=== PATIENT | female | born 1965 | race Caucasian/White ===

== ENCOUNTER 2019-01-01 21:43 | Inpatient (IN) | payer OTHER ==
[~2019-01-01] VITALS: Ht 160 cm; Wt 59.0 kg
[2019-01-01 21:52] VITALS: BP 150/44
[2019-01-01 23:14] LABS: CALCIUM 8.4 mg/dL (8.5-10.1); CREATININE 0.8 mg/dL (0.6-1.3); POTASSIUM 4.3 mmol/L (3.5-5.1)
[2019-01-01 23:18] LABS: TOTAL BILIRUBIN 0.5 mg/dL (<0.1-1.0); TOTAL PROTEIN 6.3 g/dL (6.4-8.2); URIC ACID* 2.7 mg/dL (2.6-7.2)
[2019-01-01 23:18] LABS: ABSOLUTE EOSINOPHILS 0.1 thou/uL (0.0-0.7); ABSOLUTE LYMPHOCYTES 1.1 thou/uL (0.8-5.3); ABSOLUTE MONOCYTES 0.6 thou/uL (0.0-1.2); ABSOLUTE NEUTROPHILS 4.3 thou/uL (1.6-8.1); BASOPHILS 0.4 %; EOSINOPHILS 2.1 %; HEMATOCRIT 37.4 % (37.0-47.0); LYMPHOCYTES 18.5 %; MCH 31.5 pg (26.0-34.0); MCHC 34.7 g/dL (28.0-37.0); MCV 90.8 fL (80.0-100.0); MPV 7.3 fl. (7.2-11.1); NUCLEATED RBCS 0 /100WBC; PLATELET COUNT* 248 thou/uL (150-400); RBC 4.12 mil/uL (4.20-5.00); WBC 6.1 thou/uL (4.0-11.0)
[2019-01-02] VITALS: BP 146/61
[2019-01-02 00:22] LABS: URINE BILIRUBIN NEGATIVE (Negative); URINE BLOOD NEGATIVE (Negative); URINE CLARITY CLEAR; URINE COLOR YELLOW; URINE GLUCOSE-RANDOM NEGATIVE (Negative); URINE KETONES NEGATIVE (Negative); URINE LEUKOCYTES-REFLEX NEGATIVE (Negative); URINE NITRITE-REFLEX NEGATIVE (Negative); URINE PROTEIN NEGATIVE (Negative); URINE UROBILINOGEN 0.2 E.U./dl (0.2-1.0)
[2019-01-02 00:27] LABS: AMP/METHAMP POSITIVE (Negative); BARBITURATES Negative (Negative); BENZODIAZEPINES POSITIVE (Negative); COCAINE Negative (Negative); METHADONE Negative (Negative); OPIATES Negative (Negative); PCP Negative (Negative); THC POSITIVE (Negative)
[2019-01-02 00:28] LABS: ESR (SEDRATE) 35 mm/hr (0-30)
[2019-01-02 00:29] VITALS: BP 141/75
[2019-01-02 08:15] VITALS: BP 125/73
[2019-01-02 13:35] LABS: BE -1.2 mmol/L (-2 to +3); PCO2 44.4 mmHg (35.0-45.0); PO2 85.3 mmHg (75.0-100.0); pH 7.359 (7.340-7.450)
[2019-01-02 16:27] VITALS: BP 144/69
[2019-01-03 00:06] VITALS: BP 158/79
[2019-01-03 07:05] LABS: HEMATOCRIT 41.3 % (37.0-47.0); HEMOGLOBIN 14.4 gm/dL (12.0-15.0); MCH 31.4 pg (26.0-34.0); MCHC 34.9 g/dL (28.0-37.0); MCV 89.9 fL (80.0-100.0); RBC 4.6 mil/uL (4.20-5.00); RDW-CV 12.7 % (10.5-14.5); WBC 5.4 thou/uL (4.0-11.0)
[2019-01-03 07:15] LABS: CALCIUM 8.2 mg/dL (8.5-10.1); CREATININE 0.7 mg/dL (0.6-1.3); POTASSIUM 4.3 mmol/L (3.5-5.1)
[2019-01-03 07:50] VITALS: BP 151/75
--- NOTE | 2019-01-03 11:52 | CON ---
[address] [address] CONSULTATION Name: NOLEMISA M Room: [address] M.R.#: [id number] Admission: 01/01/19 Attend Phys: Nesha Dasilva Discharge: Date of : 67 Report #: [id number] THIS REPORT FOR: //name// CC: [facility] physician/PCP Lilian Ramirez DATE OF SERVICE: 01/02/2019 INFECTIOUS DISEASE CONSULTATION ATTENDING PHYSICIAN: Dr. Ramirez. REASON FOR EVALUATION: Left lower extremity inflammatory eruption, likely skin and soft tissue infection with cellulitis. HISTORY OF PRESENT ILLNESS: Chart reviewed, patient examined. This is a 53-year-old woman without significant medical history other than history of illicit drug use. Does have apparently hepatitis B and hepatitis C that has been nontreated at this point, who smiles as she may have injured her foot in some way. She was out running with no shoes on. She is not certain. Initially had some discomfort, seemed to have resolved to some extent and then worsened over the course of the last 2-3 days prior to admission. She has had no significant fevers. She has had some anorexia with decreased food intake. Denies significant pulmonary or gastrointestinal related complaints. On evaluation, he was found to have erythrodermic type painful eruption involving her left lower extremity involving the extent of the foot, primarily dorsal aspect to the ankle and distal leg. There are no bullous lesions, no ulcerations. Edema is somewhat taut. Evaluation including plain film of the foot confirms the soft tissue swelling without evidence of underlying osseous abnormality. CRP was mildly elevated 28.7. Lactic acid 1.2. Sed rate of 35. Blood cultures are sterile thus far. She was empirically started on antimicrobial therapy with vancomycin and ceftriaxone. ALLERGIES: None known. MEDICATIONS: Include ceftriaxone, oxycodone, vancomycin, fentanyl, ondansetron as needed. PAST MEDICAL HISTORY: Otherwise unremarkable. SOCIAL HISTORY: Distant illicit drug use. Did confirm hepatitis C and hepatitis B. It had not been treated. It is chronic in nature. FAMILY HISTORY: Noncontributory. REVIEW OF SYSTEMS: Otherwise, unremarkable. A 10-[id number] CONSULTATION Name: MISA COHEN Nesha Room: [address] [place] [facility]#: [id number] Admission: 01/01/19 Attend Phys: Nesha Dasilva Discharge: Date of : 67 Report #: [id number] the exception of what is noted above. Denies any pulmonary or gastrointestinal related complaints. PHYSICAL EXAMINATION: GENERAL: She is in nwji-dw-ninndqar distress secondary to the left foot pain. She is lucid, appears to be generally well nourished. VITAL SIGNS: Temperature 97.8, pulse 80, respirations 16, blood pressure is 125/73. SKIN: Warm, dry. HEENT: Normocephalic. Extraocular muscles intact. NECK: Supple. LUNGS: Generally clear to auscultation. HEART: Regular. I do not appreciate a murmur. ABDOMEN: Soft, nontender. EXTREMITIES: Left lower extremity has erythrodermic type eruption that involves the entirety of the foot, especially dorsal aspect is tender to palpation, is difficult to appreciate a pulse although it may be due to the significant edema associated with it. It is warm to touch. It is quite tender. GENITOURINARY: Deferred. RECTAL: Deferred. LABORATORY DATA: Blood cultures sterile thus far. Urinalysis unremarkable. CBC: White count of 6.1, H and H 13.0 and 37.4, platelets of 248. Drug screen positive for methamphetamines, benzodiazepines, marijuana. Electrolytes: Sodium 141, potassium 4.3, chloride 103, bicarbonate is 27, anion gap of 11, BUN and creatinine 14 and 0.8, glucose 94, AST of 65, ALT of 78, alkaline phosphatase of 107, albumin 3, total protein 6.3, estimated GFR of 75. ASSESSMENT: Distal left lower extremity inflammatory eruption. I think likely it is skin and soft tissue with cellulitis. We will continue empiric therapy at this point. Elevation, would like to add compression as the pain recedes. We will await pending studies. At this point, I do not think I would pursue any intervention for the hepatitis B or C. She states reason for her not receiving treatment is lack of insurance, may be try to arrange something as an outpatient. <ELECTRONICALLY SIGNED> By: Jordan Carbajal MD 01/03/19 1152 [id number] Carbajal MD /nt
[2019-01-03 17:44] VITALS: BP 141/72
[2019-01-04] VITALS: BP 159/75
[2019-01-04 08:50] VITALS: BP 170/80
[2019-01-04 11:17] LABS: HEMATOCRIT 47.1 % (37.0-47.0); MCH 30.8 pg (26.0-34.0); MCV 90.7 fL (80.0-100.0); MPV 7.4 fl. (7.2-11.1); RBC 5.19 mil/uL (4.20-5.00); RDW-CV 12.9 % (10.5-14.5)
[2019-01-04 11:38] LABS: CALCIUM 8.6 mg/dL (8.5-10.1); CREATININE 0.6 mg/dL (0.6-1.3); POTASSIUM 4.9 mmol/L (3.5-5.1)
[2019-01-04 16:37] VITALS: BP 158/80
[2019-01-05 15:57] VITALS: BP 158/80
[2019-01-05] MEDS ORDERED: MINOCIN50 MG PO (16:07)
== END 2019-01-05 17:00 | disposition home or self-care (01) | DRG 603 ==
LOC: M.ERS 21:43 → M.3W 23:43 → M.TBA-ER 23:43 → M.3W 01-02 00:29
PROVIDERS: Internal Medicine; Nurse Practitioner Family; ADMIT Internal Medicine
DX: L03.116 Cellulitis of left lower limb (principal); I10 Essential (primary) hypertension; F11.11 Opioid abuse, in remission; F12.11 Cannabis abuse, in remission; F15.11 Other stimulant abuse, in remission; Z88.8 Allergy status to other drugs, medicaments and biological substances; Z23 Encounter for immunization